=== PATIENT | female | born 1970 | race Caucasian/White ===

== ENCOUNTER → 2024-04-05 12:50 | Outpatient (REF) | payer OTHER, SELFPAY | LOC: WDC 12:50 | PROVIDERS: ATTENDING PHYSICIAN Student in an Organized Health Care Education/Training Program | DX: R92.30 Dense breasts, unspecified (principal); R92.2 Inconclusive mammogram | CPT/HCPCS: 76641 ==

== ENCOUNTER → 2024-09-08 06:38 | Day surgery (SDC) | payer OTHER, SELFPAY | LOC: GI 06:38 | PROVIDERS: ATTENDING PHYSICIAN Internal Medicine Gastroenterology; FAMILY PHYSICIAN Emergency Medicine | DX: Z12.11 Encounter for screening for malignant neoplasm of colon (principal); K62.5 Hemorrhage of anus and rectum; K57.30 Diverticulosis of large intestine without perforation or abscess without bleeding; K64.8 Other hemorrhoids; Z86.0100 Personal history of colon polyps, unspecified | CPT/HCPCS: 45380; 88305 ==

== ENCOUNTER → 2024-09-24 08:05 | Outpatient (REF) | payer OTHER, SELFPAY | LOC: PAVMRI 08:05 | PROVIDERS: ATTENDING PHYSICIAN Internal Medicine Gastroenterology; FAMILY PHYSICIAN Emergency Medicine | DX: K76.89 Other specified diseases of liver (principal) | CPT/HCPCS: 74183; A9575 ==

== ENCOUNTER → 2025-01-31 12:14 | Outpatient (REF) | payer OTHER, SELFPAY | LOC: WDC 12:14 | PROVIDERS: ATTENDING PHYSICIAN Emergency Medicine | DX: K65.4 Sclerosing mesenteritis (principal); Z12.31 Encounter for screening mammogram for malignant neoplasm of breast | CPT/HCPCS: 74177; 77063; 77067; Q9967 ==

== ENCOUNTER 2025-03-23 06:24 | Day surgery (SDC) | payer OTHER, SELFPAY | END 2025-03-23 13:04 | disposition home or self-care (01) | LOC: GI 06:24 | PROVIDERS: ATTENDING PHYSICIAN Internal Medicine Gastroenterology | DX: R12 Heartburn (principal); K31.89 Other diseases of stomach and duodenum | CPT/HCPCS: 43235; 88305; 88342 ==

== ENCOUNTER → 2025-08-26 13:50 | Outpatient (REF) | payer OTHER, SELFPAY | LOC: WDC 13:50 | PROVIDERS: ATTENDING PHYSICIAN Obstetrics & Gynecology Gynecology; FAMILY PHYSICIAN Nurse Practitioner Family | DX: R92.2 Inconclusive mammogram (principal) | CPT/HCPCS: 76641 ==

== ENCOUNTER → 2025-11-28 07:09 | Outpatient (REF) | payer OTHER, SELFPAY | LOC: RCS 07:09 | PROVIDERS: ATTENDING PHYSICIAN Internal Medicine Cardiovascular Disease; FAMILY PHYSICIAN Nurse Practitioner Family | DX: R00.0 Tachycardia, unspecified (principal); R00.2 Palpitations | CPT/HCPCS: 93306 ==